=== PATIENT | female | born 1980 | race American Indian/Alaskan Native ===

== ENCOUNTER 2017-03-27 11:13 | Emergency (ER) | payer SELFPAY ==
--- NOTE | 2017-03-27 11:30 | Emergency Department Report ---
Chief Complaint: Pain General Stated Complaint: BACK PAIN/BUG BITES Time Seen by Provider: 03/27/17 11:27 - HPI History of Present Illness: PT c/o bug bites to LLE and LUE. PT c/o back pain. pt states lmp 5-17 - ROS Review of Systems: + fatigue + bug bites + nausea - Exam Physical Exam: pt looks well, non toxic localized bites noted to LLE MSE screening note: Focused history and physical exam performed. Due to findings the following was ordered: labs ED Disposition for MSE Condition: Stable
[2017-03-27 11:46] LABS: Basophils % (Auto) 0.2 % (0.0-1.8); Hematocrit 35.8 % (30.3-42.9); Hemoglobin 12.1 gm/dl (10.1-14.3); Mean Corpuscular HGB Conc 34 % (30-34); Mean Corpuscular Hemoglobin 29 pg (28-32); Mean Corpuscular Volume 85 fl (79-97); Platelet Count 228 K/mm3 (140-440); Red Blood Count 4.22 M/mm3 (3.65-5.03); Red Cell Distribution Width 13.4 % (13.2-15.2); White Blood Count 5.6 K/mm3 (4.5-11.0)
[2017-03-27 12:00] LABS: Alanine Aminotransferase 15 units/L (7-56); Albumin 3.9 g/dL (3.9-5); Albumin/Globulin Ratio 0.9 %; Alkaline Phosphatase 85 units/L (35-129); Anion Gap 15 mmol/L; BUN/Creatinine Ratio 16.66; Blood Urea Nitrogen 10 mg/dL (7-17); Calcium 8.8 mg/dL (8.4-10.2); Carbon Dioxide 27 mmol/L (22-30); Chloride 102.4 mmol/L (98-107); Glucose 87 mg/dL (65-100); Potassium 3.8 mmol/L (3.6-5.0); Sodium 141 mmol/L (137-145); Total Protein 8.3 g/dL (6.3-8.2)
[2017-03-27 12:12] LABS: Bacteria,Urine 1+ /HPF (Negative); Bilirubin,Urine NEG (Negative); Blood,Urine SM (Negative); Ketones,Urine NEG (Negative); Leukocyte Esterase,Urine TR (Negative); Mucus,Urine FEW /HPF; Nitrite,Urine NEG (Negative); Protein,Urine <15 mg/dL mg/dL (Negative); Urobilinogen,Urine < 2.0 mg/dL (<2.0)
--- NOTE | 2017-03-27 16:01 | Emergency Department Report ---
HPI - General Chief Complaint: Back Pain/Injury Time Seen by Provider: 03/27/17 11:27 - HPI HPI: Patient here reports lower back pain and bug bites for 3-4 days. She says she has small red bumps to her leg on the left side into her left arm. She is also saying that she has bumped her lip. Patient also complained in that she feels tired and nauseous and her last menstrual period was 2017 and she wants to know if she is . Pain to her back and bug bite sites is 4 out of 10 and sore. Denies any back injury or. She says she doesn't know woken up but she thinks it's mosquitoes that bit her. Denies any fever or chills. Denies swelling or drainage to bite sites. Her blood pressure is 144/100 and she denies history of high blood pressure. Upon reviewing of patient complained and coming to the ED she says she was having in pain in the back of her had, bug bites, pain in left arm, feeling nauseous and tired. Patient said that she does not have any pain in the back of her head. No [id number] medication taken. ED Past Medical Hx - Past Medical History Previous Medical History?: Yes Additional medical history: OBESITY - Surgical History Past Surgical History?: Yes Additional Surgical History: "EXCESS SKIN REMOVED FROM HEAD" - Family History Family history: hypertension - Social History Smoking Status: Never Smoker Substance Use Type: Non Opiate Pain Other Social History: single - Medications Home Medications: Home Medications Medication Instructions Recorded Confirmed Last Taken Type Acetaminophen/Codeine [Tylenol #3] 1 tab PO Q8H PRN #12 tablet 06/11/15 Unknown Rx Sulfamethoxazole/Trimethoprim 1 each PO BID #20 tablet 06/11/15 Unknown Rx [Bactrim DS TAB] Nitrofurantoin [place]/M-Cryst 100 mg PO Q12HR #14 capsule 03/27/17 Unknown Rx [Macrobid CAP] ED Review of Systems ROS: Stated complaint: BACK PAIN/BUG BITES Other details as noted in HPI Constitutional: no symptoms reported, malaise ENT: denies: throat pain, congestion Respiratory: no symptoms reported Cardiovascular: denies: chest pain, palpitations, edema, syncope Gastrointestinal: nausea. denies: vomiting Musculoskeletal: back pain, arthralgia. denies: myalgia Skin: rash Neurological: denies: headache, numbness, paresthesias, abnormal gait, vertigo Physical Exam - Physical Exam Vital Signs: Vital Signs 03/27/17 11:24 Temperature 98.8 F Pulse Rate 69 Respiratory 20 Rate Blood Pressure 144/100 O2 Sat by Pulse 100 Oximetry General: This is 37-year-old female morbidly obese , in no acute distress. Physical Exam: Head: Normocephalic, atraumatic. No abrasions, laceration or contusion Neck: Supple, no adenopathy. Full range of motion. No C-spine tenderness. No muscular tenderness Ears: Bilateral TMs pearly puri, bilaterally EAC without any redness swelling or drainage. Nose: Stephen nasal mucosa without any erythema or congestion. No drainage. No maxillary or frontal sinus tenderness. Mouth: Moist, no pharyngeal exudate or erythema. Uvula is midline and oral airways patent. Tongue is normal. No trismus. He is able to open and close his mouth without any difficulties but he said it's painful to his left facial area. No peritonsillar abscess. Left facial swelling with mild erythema and small erythema papular area to Center of swelling. Tender to palpate. Indurated without fluctuance. Erythema is minimal to the Center of swelling. Eyes: Pupils equal and reactive to light, bilateral sclera and conjunctiva without injection, bilateral EOM intact, normal accommodation. Normal lids. CV:S1, S2 regular rate and rhythm. Lungs: Clear to auscultate to lung franklin. Normal work of breathing. Abdomen: Nontender the palpation in all quadrants, no guarding or rebound tenderness. No CVA tenderness and normal bowel sounds in all quadrants. Morbidly obese abdomen. Extremity: No clubbing, cyanosis or edema. +2 pulses in all extremities. No neurovascular compromise. Capillary refill is less than 3 seconds. Good color , sensation, movement and temperature in all extremities. Able to ambulate without any difficulties. Back: Vertebral tenderness, normal inspection, full range of motion and no paraspinal tenderness. No saddle anesthesia. Negative straight leg raises. Neurological: GCS at 15, alert and oriented 3, no facial drooping, speech is clear and fluid, bilateral hand [employer] head strong and equal, no motor or sensory deficits. Normal gait. Negative Romberg and negative pronator drift. Skin: Clean dry and intact, noted small take papular areas with erythema. Very minimal to arm and left leg. Areas nontender to palpate and does not appear infected PSYCH: Normal mood and behavior. ED Course Vital Signs 03/27/17 11:24 Temperature 98.8 F Pulse Rate 69 Respiratory 20 Rate Blood Pressure 144/100 O2 Sat by Pulse 100 Oximetry - Reevaluation(s) Reevaluation #1: 03/27/17 16:07 Patient is stable throughout ED course. ED Medical Decision Making - Lab Data Result diagrams: 03/27/17 11:32 03/27/17 11:32 Lab Results 03/27/17 03/27/17 03/27/17 Range/Units 11:32 11:32 11:32 WBC 5.6 (4.5-11.0) K/mm3 RBC 4.22 (3.65-5.03) M/mm3 Hgb 12.1 (10.1-14.3) gm/dl Hct 35.8 (30.3-42.9) % MCV 85 (79-97) fl MCH 29 (28-32) pg MCHC 34 (30-34) % RDW 13.4 (13.2-15.2) % Plt Count 228 (140-440) K/mm3 Lymph % (Auto) 45.0 H (13.4-35.0) % Cobb % (Auto) 7.1 (0.0-7.3) % Eos % (Auto) 1.0 (0.0-4.3) % Baso % (Auto) 0.2 (0.0-1.8) % Lymph # 2.5 (1.2-5.4) K/mm3 Cobb # 0.4 (0.0-0.8) K/mm3 Eos # 0.1 (0.0-0.4) K/mm3 Baso # 0.0 (0.0-0.1) K/mm3 Seg Neutrophils % 46.7 (40.0-70.0) % Seg Neutrophils # 2.6 (1.8-7.7) K/mm3 Sodium 141 (137-145) mmol/L Potassium 3.8 (3.6-5.0) mmol/L Chloride 102.4 (98-107) mmol/L Carbon Dioxide 27 (22-30) mmol/L Anion Gap 15 mmol/L BUN 10 (7-17) mg/dL Creatinine 0.6 L (0.7-1.2) mg/dL Estimated GFR > 60 ml/min BUN/Creatinine Ratio 16.66 % Glucose 87 (65-100) mg/dL Calcium 8.8 (8.4-10.2) mg/dL Total Bilirubin 0.40 (0.1-1.2) mg/dL AST 13 (5-40) units/L ALT 15 (7-56) units/L Alkaline Phosphatase 85 (35-129) units/L Total Protein 8.3 H (6.3-8.2) g/dL Albumin 3.9 (3.9-5) g/dL Albumin/Globulin Ratio 0.9 % HCG, Qual Negative (Negative) Urine Color (Yellow) Urine Turbidity (Clear) Urine pH (5.0-7.0) Ur Specific [place] (1.003-1.030) Urine Protein (Negative) mg/dL Urine Glucose (UA) (Negative) mg/dL Urine Ketones (Negative) mg/dL Urine Blood (Negative) Urine Nitrite (Negative) Urine Bilirubin (Negative) Urine Urobilinogen (<2.0) mg/dL Ur Leukocyte Esterase (Negative) Urine WBC (Auto) (0.0-6.0) /HPF Urine RBC (Auto) (0.0-6.0) /HPF U Epithel Cells (Auto) (0-13.0) /HPF Urine Bacteria (Auto) (Negative) /HPF Urine Mucus /HPF 03/27/17 Range/Units 11:41 WBC (4.5-11.0) K/mm3 RBC (3.65-5.03) M/mm3 Hgb (10.1-14.3) gm/dl Hct (30.3-42.9) % MCV (79-97) fl MCH (28-32) pg MCHC (30-34) % RDW (13.2-15.2) % Plt Count (140-440) K/mm3 Lymph % (Auto) (13.4-35.0) % Cobb % (Auto) (0.0-7.3) % Eos % (Auto) (0.0-4.3) % Baso % (Auto) (0.0-1.8) % Lymph # (1.2-5.4) K/mm3 Cobb # (0.0-0.8) K/mm3 Eos # (0.0-0.4) K/mm3 Baso # (0.0-0.1) K/mm3 Seg Neutrophils % (40.0-70.0) % Seg Neutrophils # (1.8-7.7) K/mm3 Sodium (137-145) mmol/L Potassium (3.6-5.0) mmol/L Chloride (98-107) mmol/L Carbon Dioxide (22-30) mmol/L Anion Gap mmol/L BUN (7-17) mg/dL Creatinine (0.7-1.2) mg/dL Estimated GFR ml/min BUN/Creatinine Ratio % Glucose (65-100) mg/dL Calcium (8.4-10.2) mg/dL Total Bilirubin (0.1-1.2) mg/dL AST (5-40) units/L ALT (7-56) units/L Alkaline Phosphatase (35-129) units/L Total Protein (6.3-8.2) g/dL Albumin (3.9-5) g/dL Albumin/Globulin Ratio % HCG, Qual (Negative) Urine Color Yellow (Yellow) Urine Turbidity Clear (Clear) Urine pH 7.0 (5.0-7.0) Ur Specific [place] 1.018 (1.003-1.030) Urine Protein <15 mg/dl (Negative) mg/dL Urine Glucose (UA) Neg (Negative) mg/dL Urine Ketones Neg (Negative) mg/dL Urine Blood Sm (Negative) Urine Nitrite Neg (Negative) Urine Bilirubin Neg (Negative) Urine Urobilinogen < 2.0 (<2.0) mg/dL Ur Leukocyte Esterase Tr (Negative) Urine WBC (Auto) 1.0 (0.0-6.0) /HPF Urine RBC (Auto) 1.0 (0.0-6.0) /HPF U Epithel Cells (Auto) 19.0 H (0-13.0) /HPF Urine Bacteria (Auto) 1+ (Negative) /HPF Urine Mucus Few /HPF Urine culture pending - Medical Decision Making ED course: Pt here complaining of lower back pain without any injury and feeling of nausea and tiredness requesting test. She is also complaining of bug bites to her left upper extremity and left lower extremity. Patient with insect bite without any infection, arthralgia, acute cystitis with hematuria. She also with elevated blood pressure but she denies any history of hypertension. She is a risk due to morbid obesity and family history of high blood pressure. Educated patient lives some modification, diagnosis of urinary tract infection and treatment plan discussed. 1+ bacteria, positive leuk trase , trace blood but she has epithelial cell which is probably contaminated. I sent urine culture off. I told her that it looks like she has what appears to be insect bites which could be mosquito but it's not infected to keep the affected area clean and dry. I also discussed the so discussed the patient that she is not . Critical care attestation.: If time is entered above; I have spent that time in minutes in the direct care of this critically ill patient, excluding procedure time. ED Disposition Clinical Impression: Acute cystitis with hematuria, Arthralgia of multiple sites, Elevated blood pressure reading without diagnosis of hypertension Insect bite Qualifiers: Encounter type: initial encounter Qualified Code(s): W57.XXXA - Bitten or stung by nonvenomous insect and other nonvenomous arthropods, initial encounter Back pain Qualifiers: Back pain location: low back pain Chronicity: acute Back pain laterality: bilateral Sciatica presence: without sciatica Qualified Code(s): M54.5 - Low back pain Disposition: DC-01 TO HOME OR SELFCARE Is pt being admited?: No Does the pt Need Aspirin: No Condition: Stable Instructions: Back Pain (ED), Arthralgia (ED), Insect Bite or Sting (ED), Urinary Tract Infection in Women (ED), Heart Healthy Diet (ED), DASH Eating Plan (ED), Hypertension (ED) Additional Instructions: Increased her fluid intake Take Antibiotic as prescribed Keep Affected areas clean and dry Please keep a log of your blood pressure since it was elevated today and take to primary care visit with you for evaluation. Prescriptions: Nitrofurantoin Cobb/M-Cryst [Macrobid CAP] 100 mg PO Q12HR #14 capsule Referrals: [facility] [Outside] - 2-3 Days
[2017-03-27 17:40] VITALS: BP 128/64
== END 2017-03-27 17:40 | disposition home or self-care (01) ==
LOC: ED 11:13
DX: N30.01 Acute cystitis with hematuria (principal); R03.0 Elevated blood-pressure reading, without diagnosis of hypertension; S80.862A Insect bite (nonvenomous), left lower leg, initial encounter; S60.562A Insect bite (nonvenomous) of left hand, initial encounter; W57.XXXA Bitten or stung by nonvenomous insect and other nonvenomous arthropods, initial encounter; Y93.89 Activity, other specified; Y92.89 Other specified places as the place of occurrence of the external cause; Y99.8 Other external cause status
CPT/HCPCS: 36415; 80053; 81001; 84703; 85025; 87086; 99283

== ENCOUNTER 2017-07-22 07:56 | Emergency (ER) | payer SELFPAY ==
[2017-07-22 08:07] VITALS: BP 153/100
== END 2017-07-22 14:09 | disposition left against medical advice (07) ==
LOC: ED 07:56
DX: R51 Headache (principal); Z53.21 Procedure and treatment not carried out due to patient leaving prior to being seen by health care provider

== ENCOUNTER 2017-11-22 10:36 | Emergency (ER) | payer SELFPAY ==
[2017-11-22 12:41] LABS: Basophils % (Auto) 0.2 % (0.0-1.8); Eosinophils % (Auto) 0.7 % (0.0-4.3); Hematocrit 36.3 % (30.3-42.9); Hemoglobin 11.8 gm/dl (10.1-14.3); Lymphocytes # (Auto) 2.9 K/mm3 (1.2-5.4); Lymphocytes % (Auto) 49.2 % (13.4-35.0); Mean Corpuscular HGB Conc 33 % (30-34); Mean Corpuscular Hemoglobin 28 pg (28-32); Mean Corpuscular Volume 84 fl (79-97); Monocytes # (Auto) 0.4 K/mm3 (0.0-0.8); Monocytes % (Auto) 6.8 % (0.0-7.3); Platelet Count 225 K/mm3 (140-440); Red Blood Count 4.31 M/mm3 (3.65-5.03); Red Cell Distribution Width 13.5 % (13.2-15.2)
[2017-11-22 12:49] LABS: Bilirubin,Urine NEG (Negative); Blood,Urine SM (Negative); Color,Urine Yellow (Yellow); Mucus,Urine FEW /HPF; Protein,Urine <15 mg/dL mg/dL (Negative); Urobilinogen,Urine < 2.0 mg/dL (<2.0)
[2017-11-22 12:50] LABS: HCG Qualitative,Urine Negative (Negative)
[2017-11-22 12:54] LABS: INR 0.91 (0.87-1.13)
[2017-11-22 12:55] LABS: Partial Thromboplastin Time 33.1 Sec. (24.2-36.6)
[2017-11-22 13:02] LABS: BUN/Creatinine Ratio 23; Blood Urea Nitrogen 14 mg/dL (7-17); Calcium 9.2 mg/dL (8.4-10.2); Hemolysis Index 8
--- NOTE | 2017-11-22 13:56 | Cat Scan Report ---
FINAL REPORT EXAM: CT HEAD/BRAIN WO CON HISTORY: severe headache pain with left arm numbness TECHNIQUE: CT examination of the head without IV contrast PRIORS: None. FINDINGS: No acute air-fluid level visualized in the included air-filled sinuses. Bone windows demonstrate no acute fracture. The brain is without mass, mass effect, hemorrhage, or acute infarct. There is no extra-axial intracranial bleed, brain bleed, or midline shift. The ventricles and sulci are age-appropriate. IMPRESSION: No acute CVA, intracranial bleed, or brain mass
[2017-11-22 15:08] VITALS: BP 137/82
--- NOTE | 2017-11-22 15:23 | Emergency Department Report ---
ED General Adult HPI - General Chief complaint: Neuro Symptoms/Deficit Stated complaint: HEAD/SHOULDER/ARM PAIN Time Seen by Provider: 11/22/17 15:22 Source: patient Mode of arrival: Ambulatory Limitations: No Limitations - History of Present Illness Initial comments: Patient is a 37-year-old female no significant past medical history who presents with headache and left arm numbness it's been going on for couple days. Patient states that her headache is a 7 out of 10 as an achy type of pain nothing she seems to do makes it better or worse. Patient states that she had the headache occurred gradually she has no neck pain no fever no loss of consciousness no vision changes. Patient states that she went to the urgent care and she was told to be evaluated by the ER. Severity scale (0 -10): 6 - Related Data Previous Rx's Medication Instructions Recorded Last Taken Type Acetaminophen/Codeine [Tylenol #3] 1 tab PO Q8H PRN #12 tablet 06/11/15 Unknown Rx Sulfamethoxazole/Trimethoprim 1 each PO BID #20 tablet 06/11/15 Unknown Rx [Bactrim DS TAB] Nitrofurantoin [place]/M-Cryst 100 mg PO Q12HR #14 capsule 03/27/17 Unknown Rx [Macrobid CAP] Butalb/Acetamin/Caff 50-325-40 1 tab PO Q6HR PRN #30 tab 11/22/17 Unknown Rx [Fioricet] Allergies Allergy/AdvReac Type Severity Reaction Status Date / Time naproxen [From Naprosyn] Allergy Unknown Verified 07/22/17 08:01 ED Review of Systems ROS: Stated complaint: HEAD/SHOULDER/ARM PAIN Other details as noted in HPI Constitutional: denies: chills, fever Eyes: denies: eye pain, eye discharge, vision change ENT: denies: ear pain, throat pain Respiratory: denies: cough, shortness of breath, wheezing Cardiovascular: denies: chest pain, palpitations Endocrine: no symptoms reported Gastrointestinal: denies: abdominal pain, nausea, diarrhea Genitourinary: denies: urgency, dysuria, discharge Musculoskeletal: denies: back pain, joint swelling, arthralgia Skin: denies: rash, lesions Neurological: headache. denies: weakness, paresthesias Psychiatric: denies: anxiety, depression Hematological/Lymphatic: denies: easy bleeding, easy bruising ED Past Medical Hx - Past Medical History Previous Medical History?: Yes Additional medical history: OBESITY - Surgical History Additional Surgical History: "EXCESS SKIN REMOVED FROM HEAD" - Social History Smoking Status: Former Smoker Substance Use Type: Alcohol, Marijuana - Medications Home Medications: Home Medications Medication Instructions Recorded Confirmed Last Taken Type Acetaminophen/Codeine [Tylenol #3] 1 tab PO Q8H PRN #12 tablet 06/11/15 Unknown Rx Sulfamethoxazole/Trimethoprim 1 each PO BID #20 tablet 06/11/15 Unknown Rx [Bactrim DS TAB] Nitrofurantoin [place]/M-Cryst 100 mg PO Q12HR #14 capsule 03/27/17 Unknown Rx [Macrobid CAP] Butalb/Acetamin/Caff 50-325-40 1 tab PO Q6HR PRN #30 tab 11/22/17 Unknown Rx [Fioricet] ED Physical Exam - General Limitations: No Limitations General appearance: alert, in no apparent distress - Head Head exam: Present: atraumatic, normocephalic - Eye Eye exam: Present: normal appearance - ENT ENT exam: Present: mucous membranes moist - Neck Neck exam: Present: normal inspection - Respiratory Respiratory exam: Present: normal lung sounds bilaterally. Absent: respiratory distress - Cardiovascular Cardiovascular Exam: Present: regular rate, normal rhythm. Absent: systolic murmur, diastolic murmur, rubs, gallop - GI/Abdominal GI/Abdominal exam: Present: soft, normal bowel sounds - Extremities Exam Extremities exam: Present: normal inspection - Back Exam Back exam: Present: normal inspection - Neurological Exam Neurological exam: Present: alert, oriented X3 - Psychiatric Psychiatric exam: Present: normal affect, normal mood - Skin Skin exam: Present: warm, dry, intact, normal color. Absent: rash ED Course Vital Signs 11/22/17 11/22/17 11:34 15:08 Temperature 97.8 F 98.1 F Pulse Rate 84 100 H Respiratory 18 20 Rate Blood Pressure 162/108 137/82 O2 Sat by Pulse 100 100 Oximetry ED Medical Decision Making - Lab Data Result diagrams: 11/22/17 12:28 11/22/17 12:28 Lab Results 11/22/17 11/22/17 11/22/17 Range/Units 12:26 12:28 12:28 WBC 5.9 (4.5-11.0) K/mm3 RBC 4.31 (3.65-5.03) M/mm3 Hgb 11.8 (10.1-14.3) gm/dl Hct 36.3 (30.3-42.9) % MCV 84 (79-97) fl MCH 28 (28-32) pg MCHC 33 (30-34) % RDW 13.5 (13.2-15.2) % Plt Count 225 (140-440) K/mm3 Lymph % (Auto) 49.2 H (13.4-35.0) % [place] % (Auto) 6.8 (0.0-7.3) % Eos % (Auto) 0.7 (0.0-4.3) % Baso % (Auto) 0.2 (0.0-1.8) % Lymph # 2.9 (1.2-5.4) K/mm3 [place] # 0.4 (0.0-0.8) K/mm3 Eos # 0.0 (0.0-0.4) K/mm3 Baso # 0.0 (0.0-0.1) K/mm3 Seg Neutrophils % 43.1 (40.0-70.0) % Seg Neutrophils # 2.6 (1.8-7.7) K/mm3 PT 12.7 (12.2-14.9) Sec. INR 0.91 (0.87-1.13) APTT 33.1 (24.2-36.6) Sec. Thrombin Time (15.1-19.6) Sec. Sodium (137-145) mmol/L Potassium (3.6-5.0) mmol/L Chloride (98-107) mmol/L Carbon Dioxide (22-30) mmol/L Anion Gap mmol/L BUN (7-17) mg/dL Creatinine (0.7-1.2) mg/dL Estimated GFR ml/min BUN/Creatinine Ratio % Glucose (65-100) mg/dL Calcium (8.4-10.2) mg/dL Troponin T (0.00-0.029) ng/mL Urine Color Yellow (Yellow) Urine Turbidity Clear (Clear) Urine pH 6.0 (5.0-7.0) Ur Specific [place] 1.019 (1.003-1.030) Urine Protein <15 mg/dl (Negative) mg/dL Urine Glucose (UA) Neg (Negative) mg/dL Urine Ketones Neg (Negative) mg/dL Urine Blood Sm (Negative) Urine Nitrite Neg (Negative) Urine Bilirubin Neg (Negative) Urine Urobilinogen < 2.0 (<2.0) mg/dL Ur Leukocyte Esterase Neg (Negative) Urine WBC (Auto) 1.0 (0.0-6.0) /HPF Urine RBC (Auto) 2.0 (0.0-6.0) /HPF U Epithel Cells (Auto) 2.0 (0-13.0) /HPF Urine Mucus Few /HPF Urine HCG, Qual Negative (Negative) 11/22/17 11/22/17 Range/Units 12:28 12:28 WBC (4.5-11.0) K/mm3 RBC (3.65-5.03) M/mm3 Hgb (10.1-14.3) gm/dl Hct (30.3-42.9) % MCV (79-97) fl MCH (28-32) pg MCHC (30-34) % RDW (13.2-15.2) % Plt Count (140-440) K/mm3 Lymph % (Auto) (13.4-35.0) % [place] % (Auto) (0.0-7.3) % Eos % (Auto) (0.0-4.3) % Baso % (Auto) (0.0-1.8) % Lymph # (1.2-5.4) K/mm3 [place] # (0.0-0.8) K/mm3 Eos # (0.0-0.4) K/mm3 Baso # (0.0-0.1) K/mm3 Seg Neutrophils % (40.0-70.0) % Seg Neutrophils # (1.8-7.7) K/mm3 PT (12.2-14.9) Sec. INR (0.87-1.13) APTT (24.2-36.6) Sec. Thrombin Time 14.4 L (15.1-19.6) Sec. Sodium 140 (137-145) mmol/L Potassium 3.9 (3.6-5.0) mmol/L Chloride 101.3 (98-107) mmol/L Carbon Dioxide 25 (22-30) mmol/L Anion Gap 18 mmol/L BUN 14 (7-17) mg/dL Creatinine 0.6 L (0.7-1.2) mg/dL Estimated GFR > 60 ml/min BUN/Creatinine Ratio 23 % Glucose 89 (65-100) mg/dL Calcium 9.2 (8.4-10.2) mg/dL Troponin T < 0.010 (0.00-0.029) ng/mL Urine Color (Yellow) Urine Turbidity (Clear) Urine pH (5.0-7.0) Ur Specific [place] (1.003-1.030) Urine Protein (Negative) mg/dL Urine Glucose (UA) (Negative) mg/dL Urine Ketones (Negative) mg/dL Urine Blood (Negative) Urine Nitrite (Negative) Urine Bilirubin (Negative) Urine Urobilinogen (<2.0) mg/dL Ur Leukocyte Esterase (Negative) Urine WBC (Auto) (0.0-6.0) /HPF Urine RBC (Auto) (0.0-6.0) /HPF U Epithel Cells (Auto) (0-13.0) /HPF Urine Mucus /HPF Urine HCG, Qual (Negative) - EKG Data -: EKG Interpreted by Mt - EKG Data 11/22/17 16:05 EKG shows normal sinus rhythm no ST segment elevation no T wave inversion. Normal axis - Radiology Data Radiology results: report reviewed, image reviewed CT scan of head: Shows no acute intracranial process - Medical Decision Making Chief medical diagnosis: Tension headache differential medical diagnosis migraine headache, subdural hemorrhage, electorlyte abnormality I will get cbc, bmp, ekg, ct head and oral fiorcet and I will re-evaluate the patient. Pt's diagnostic workup is unremarkable I will send pt home. Discussed outpatient followup with patient and patient agrees plan to be discharged additional verbal discharge instructions were given. Critical care attestation.: If time is entered above; I have spent that time in minutes in the direct care of this critically ill patient, excluding procedure time. ED Disposition Clinical Impression: Tension headache Disposition: - TO HOME OR SELFCARE Is pt being admited?: No Does the pt Need Aspirin: No Condition: Stable Instructions: Tension Headache (ED) Prescriptions: Butalb/Acetamin/Caff 50-325-40 [Fioricet] 1 tab PO Q6HR PRN #30 tab PRN Reason: Headache Referrals: ODAMY MORRISON MD [Staff Physician] - 3-5 Days
[2017-11-22] MEDS ORDERED: FIORICET ONE (15:34)
[2017-11-22] MEDS ORDERED: FIORICET PO ONE (15:36)
== END 2017-11-22 15:55 | disposition home or self-care (01) ==
LOC: ED 10:36
DX: G44.209 Tension-type headache, unspecified, not intractable (principal); R20.0 Anesthesia of skin; Z87.891 Personal history of nicotine dependence; Z88.6 Allergy status to analgesic agent
CPT/HCPCS: 36415; 70450; 80048; 81001; 81025; 84484; 85025; 85610; 85670; 85730; 93005; 93010; 99284

== ENCOUNTER 2018-04-04 15:51 | Emergency (ER) | payer SELFPAY ==
[2018-04-04 16:15] VITALS: BP 133/83
[2018-04-04 17:34] LABS: HCG Qualitative,Urine Negative (Negative)
[2018-04-04 17:38] LABS: Bacteria,Urine 1+ /HPF (Negative); Bilirubin,Urine NEG (Negative); Blood,Urine NEG (Negative); Color,Urine Yellow (Yellow); Mucus,Urine 1+ /HPF; Protein,Urine <15 mg/dL mg/dL (Negative); Urobilinogen,Urine < 2.0 mg/dL (<2.0)
--- NOTE | 2018-04-04 18:34 | Emergency Department Report ---
ED Back Pain/Injury HPI - General Chief Complaint: Back Pain/Injury Stated Complaint: LOWER BACK PAIN Time Seen by Provider: 04/04/18 18:17 Source: patient Limitations: No Limitations - History of Present Illness Initial Comments: Patient is a 38-year-old black female who is complaining of 2 weeks of left lower back pain. Patient states it hurts to move says the pain is 7 out of 10 as a burning sensation. Patient denies any radiation of pain down her leg and she denies any bowel or bladder dysfunction at this time. Patient 2 days ago also has nausea vomiting and some crampy lower abdominal pain. She believes this is from his [place] food and the nausea is improving. - Related Data Previous Rx's Medication Instructions Recorded Last Taken Type Acetaminophen/Codeine [Tylenol #3] 1 tab PO Q8H PRN #12 tablet 06/11/15 Unknown Rx Sulfamethoxazole/Trimethoprim 1 each PO BID #20 tablet 06/11/15 Unknown Rx [Bactrim DS TAB] Nitrofurantoin [place]/M-Cryst 100 mg PO Q12HR #14 capsule 03/27/17 Unknown Rx [Macrobid CAP] Butalb/Acetamin/Caff 50-325-40 1 tab PO Q6HR PRN #30 tab 11/22/17 Unknown Rx [Fioricet] methOCARBAMOL [Robaxin TAB] 500 mg PO Q6H PRN #15 tablet 04/04/18 Unknown Rx predniSONE [Deltasone] 20 mg PO QDAY #5 tab 04/04/18 Unknown Rx traMADol [Ultram] 50 mg PO Q6HR PRN #10 tablet 04/04/18 Unknown Rx Allergies Allergy/AdvReac Type Severity Reaction Status Date / Time naproxen [From Naprosyn] Allergy Unknown Verified 07/22/17 08:01 ED Review of Systems ROS: Stated complaint: LOWER BACK PAIN Other details as noted in HPI Comment: All other systems reviewed and negative ED Past Medical Hx - Past Medical History OBESITY Family history: hypertension ED Back Pain Physical Exam - Exam General: Vital signs noted. No distress. Alert and acting appropriately. Back/Abdomen: Yes Perilumbar Tenderness (left sided), No Abdominal Tenderness, No Perithoracic Tenderness, No Sacroiliac Tenderness, No Flank Tenderness, No Straight Leg Raise Pain Neuro: Yes Normal Sensation, Yes Normal DTR's, Yes Normal Gait, No Motor Weakness ED Course Vital Signs 04/04/18 16:10 Temperature 98.2 F Pulse Rate 86 Respiratory 18 Rate Blood Pressure 133/83 O2 Sat by Pulse 100 Oximetry ED Medical Decision Making - Medical Decision Making Patient be referred to orthopedics and will be treated for symptomatic relief Critical care attestation.: If time is entered above; I have spent that time in minutes in the direct care of this critically ill patient, excluding procedure time. ED Disposition Clinical Impression: Lumbago Qualifiers: Chronicity: acute Back pain laterality: left Sciatica presence: without sciatica Qualified Code(s): M54.5 - Low back pain Disposition: DC-01 TO HOME OR SELFCARE Is pt being admited?: No Does the pt Need Aspirin: No Condition: Stable Instructions: Low Back Strain (ED) Referrals: PRIMARY CARE, [Primary Care Provider] - 3-5 Days
== END 2018-04-04 18:45 | disposition home or self-care (01) ==
LOC: ED 15:51
DX: M54.5 Low back pain (principal); Z88.8 Allergy status to other drugs, medicaments and biological substances
CPT/HCPCS: 81001; 81025; 99283